=== PATIENT | male | born 1985 | race Caucasian/White ===

== ENCOUNTER 2020-08-07 10:27 | Emergency (ER) | payer OTHER ==
[~2020-08-07] VITALS: Ht 172.7 cm; Wt 74.8 kg
[2020-08-07] MEDS ORDERED: DISKETS40 MG PO (11:12)
[2020-08-07] MEDS ORDERED: ONDANSETRON ODT8 MG PO (13:27)
== END 2020-08-07 13:34 | disposition home or self-care (01) ==
LOC: ED 10:27
DX: F11.23 Opioid dependence with withdrawal (principal); F17.200 Nicotine dependence, unspecified, uncomplicated; Z88.8 Allergy status to other drugs, medicaments and biological substances; Z20.822 Contact with and (suspected) exposure to COVID-19
CPT/HCPCS: 96374; 96375; 99284-25; A9270; C9803; J1200; J1885; J7030; U0003